=== PATIENT | male | born 1970 | race Caucasian/White ===

== ENCOUNTER 2023-05-14 18:56 | Emergency (ER) | payer BC ==
[~2023-05-14] VITALS: Ht 170.1 cm; Wt 87.5 kg
[2023-05-14] MEDS ORDERED: ZITHROMAX500 MG PO (21:41)
== END 2023-05-14 22:08 | disposition home or self-care (01) ==
LOC: ED 18:56
DX: J02.9 Acute pharyngitis, unspecified (principal)

== ENCOUNTER → 2024-06-15 | Outpatient (CLI) | payer BC ==
[~2024-06-15] MED LIST: ZITHROMAX500 MG PO
== END | disposition home or self-care (01) ==
LOC: RAD 07:59
PROVIDERS: ATTEND Chiropractor
DX: M25.78 Osteophyte, vertebrae (principal); M54.50 Low back pain, unspecified